=== PATIENT | female | born 1945 | race Caucasian/White ===

== ENCOUNTER → 2024-02-12 08:51 | Outpatient (REF) | payer OTHER, SELFPAY | LOC: RAD 08:51 | PROVIDERS: ATTENDING PHYSICIAN Internal Medicine | DX: Z78.0 Asymptomatic menopausal state (principal) | CPT/HCPCS: 77080 ==

== ENCOUNTER → 2025-02-04 12:36 | Outpatient (REF) | payer OTHER, SELFPAY | LOC: WDC 12:36 | PROVIDERS: ATTENDING PHYSICIAN Family Medicine | DX: Z12.31 Encounter for screening mammogram for malignant neoplasm of breast (principal) | CPT/HCPCS: 77063; 77067 ==

== ENCOUNTER → 2025-07-17 08:38 | Outpatient (REF) | payer OTHER, SELFPAY | LOC: RAD 08:38 | PROVIDERS: ATTENDING PHYSICIAN Urology; FAMILY PHYSICIAN Family Medicine | DX: R39.89 Other symptoms and signs involving the genitourinary system (principal); N39.0 Urinary tract infection, site not specified | CPT/HCPCS: 74176 ==

== ENCOUNTER 2025-08-02 12:44 | Emergency (ER) | payer OTHER, SELFPAY ==
[2025-08-02 12:51] VITALS: BP 161/86
--- NOTE | 2025-08-02 13:56 | ED.GENMED ---
History of Present Illness
General
Chief Complaint: Chest Pain
Source: patient
Exam Limitations: none
Time Seen by Provider: 08/02/25 13:41
History of Present Illness
History of Present Illness:
79-year-old female with history of hypertension presents with intermittent chest discomfort over the past 2 weeks seems to be getting worse with time. She does note that she is more winded with some exertion. The pain does not radiate to the neck
or back. The pain does not radiate down the arm. No associated nausea vomiting or diaphoresis. No recent travel or surgery. No leg swelling or calf pain. Of note, she had urinary symptoms and was diagnosed with urinary tract infection recently.
She finished a course of antibiotics, ciprofloxacin recently. The pain did start however before the onset of the antibiotic. She spoke with her family doctor and was sent here for further evaluation. No other complaints at this time
Past History
Past History
ED Past Medical History: HTN; Negative Hypercholesterolemia, IDDM or NIDDM
ED Past Surgical History: Negative Cardiac
Social History
Tobacco: Non-smoker
Alcohol: None
Drug: None
Living: with family
Employment: Retired
Family History
Family History: Hypertension
Phy Exam
Physical Exam
Physical Exam:
General: Well-appearingFemale no acute respiratory distress
HEENT: Normal cephalic atraumatic
Heart: Regular rate and rhythm
Lungs: Clear no wheeze
Abdomen is soft nontender nondistended
Extremities: No cyanosis
Scores
Heart Score for Chest Pain Patients
STEMI patient?: No
History: Slightly or Non-Suspicious
ECG: Normal
Age: >/= 65 years
Risk Factors: 1 or 2 Risk Factors
Troponin: </= Normal Limit
Heart Score for Chest Pain Patients: 3
Heart Score Risk: 2.5% MACE over next 6 weeks
Course
Orders/Labs/Results
Orders:
Orders
08/02/25 12:44
Electrocardiogram (*1) Urgent
Reason for Study: Chest Pain
EKG- Treatment ONCE
08/02/25 13:54
CR Chest - 2 Views Urgent
Comment:
Reason For Exam: chest pain
08/02/25 14:08
Complete Blood Count/With Diff Urgent
Comprehensive Metabolic Panel Urgent
Lipase Urgent
Troponin I Urgent
Abnormal Lab Results
08/02/25
14:08
MCHC 31.8 L g/dL
(33.0-37.0)
BUN 19 H mg/dl
(7-17)
08/02/25 14:08
08/02/25 14:08
Vital Signs
Initial and Last Documented VS:
Initial Vital Signs
Temp Pulse Resp BP Pulse Ox
97.4 F 80 16 161/86 99
08/02/25 12:51 08/02/25 12:51 08/02/25 12:51 08/02/25 12:51 08/02/25 12:51
Last Documented Vital Signs
Temp Pulse Resp BP Pulse Ox
97.4 F 72 11 161/86 98
08/02/25 12:51 08/02/25 14:30 08/02/25 14:30 08/02/25 12:51 08/02/25 14:30
MDM/Problems Addressed
Differential Diagnosis Includes:
Chest pain intermittent since 2 weeks ago. Consider ACS versus musculoskeletal chest pain versus reflux.
EKG through triage shows sinus rhythm with right bundle anselmo block and PACs but no ischemic changes will get x-ray of the chest and labs including troponin. Patient currently does not have any chest pain
*Pulse Oximetry
SaO2: 99
Oxygen Mode of Delivery: Room air
Patient hypoxic: no
*Critical Care Note
Total Time (30-74mins, 75-104mins- exclusive of procedures): Not Applicable
Update Note
Update Note:
Work appear unremarkable with negative troponin chest x-ray clear patient remained chest pain-free throughout her visit. She has had weeks of discomfort no signs of acute coronary syndrome or imminent danger happening on the workup. She does
follow with cardiology here chest pain hotline will be used for follow-up. Patient expresses her desire to go home. No indication for admission
ED Attending Note
-
Portions of this chart may have been created with voice recognition software.� Occasional wrong word or��sound alike� substitutions may have occurred due to the inherent limitations of voice recognition software.
Discharge Plan
Departure
Patient Disposition: Home (Routine Discharge)
Date of Disposition: 08/02/25
Time of Disposition: 16:02
Patient with high blood pressure during this ER visit?: No
Discharge Problem:
Chest pain
Instructions: Chest Pain DCA Follow Up
Prescriptions:
No Action
lisinopril 20 MG tablet
20 mg PO DAILY
amlodipine 5 MG tablet
5 mg PO DAILY
aspirin 81 MG tablet,chewable
81 mg PO DAILY
zolpidem 5 MG tablet
5 mg PO HSPRN PRN (Reason: sleep)
acetaminophen [Tylenol] 325 MG capsule
650 mg PO Q4HPRN PRN (Reason: pain)
amoxicillin-pot clavulanate 1 TABLET tablet
1 tab PO Q12 Qty: 19 0RF
Referrals:
Manisha Jorge MD [Family Provider, Family Practice]
Activity Restrictions/Additional Instructions:
Please return here for worsening symptoms. Follow-up with cardiology. They should be calling you to set up an appointment.
Interventions
Interventions:
*Risk Screen - Suicide Last Done: 08/02/25 12:51
*General Assessment Last Done: 08/02/25 12:51
*Neglect/Abuse Screening Last Done: 08/02/25 12:51
*ED COVID-19 Vaccine History Last Done: 08/02/25 12:51
*ED Influenza Vaccine History Last Done: 08/02/25 12:51
ED- Cardiac Assessment Last Done: 08/02/25 14:16
Discharge Date and Time
Print Language: [place]
[2025-08-02 14:03] VITALS: BMI 24.2
[2025-08-02 14:20] LABS: Hematocrit 44.7 % (37.0-47.0); Hemoglobin 14.2 g/dL (12.0-16.0); Mean Corp Hgb Conc. 31.8 g/dL (33.0-37.0); Mean Corpuscular Volume 89.4 fL (81.0-99.0); Nucleated Red Blood Cells % 0 %; Platelet Count 257 10^3/uL (130-400); Red Cell Dist. Width 13.8 % (11.5-14.5)
[2025-08-02 14:41] LABS: ALT (SGPT) 17 U/L (0-35); AST (SGOT) 23 U/L (14-36); Albumin 4.2 g/dl (3.5-5.0); Alkaline Phosphatase 54 U/L (38-126); Blood Urea Nitrogen 19 mg/dl (7-17); Calcium 9.5 mg/dl (8.4-10.2); Carbon Dioxide 27 mmol/L (22-30); Chloride 106 mmol/L (98-107); Estimated Creatinine Clearance 48 ml/min; Glucose 99 mg/dl (70-99); Lipase 70 U/L (23-300); Potassium 4.5 mmol/L (3.5-5.1); Sodium 136 mmol/L (135-145); Total Protein 7.1 g/dl (6.3-8.2); eGFR > 60.00
[2025-08-02 14:46] LABS: Troponin I < 0.012 ng/ml
== END 2025-08-02 16:20 | disposition home or self-care (01) ==
LOC: EMR 12:44
PROVIDERS: Physician Assistant; EMERGENCY PHYSICIAN Emergency Medicine; FAMILY PHYSICIAN Family Medicine
DX: R07.89 Other chest pain (principal); I10 Essential (primary) hypertension; Z87.440 Personal history of urinary (tract) infections; Z88.2 Allergy status to sulfonamides
CPT/HCPCS: 99283; 71046; 80053; 83690; 84484; 85025; 93005